=== PATIENT | female | born 1945 ===

== ENCOUNTER 2020-06-09 16:34 | Emergency (ER) | payer MEDICARE ==
[~2020-06-09 16:34] MED LIST: Iopamidol-370 76% 500 ML 1 ML ONE
--- NOTE | 2020-06-09 17:11 | RAD ---
Chest AP view INDICATION: Chest pain COMPARISON: None FINDINGS: Lungs: The lungs are clear Cardiac silhouette: The cardiomediastinal silhouette appears within normal limits. Pulmonary vasculature: Normal Pleural spaces: No pleural effusion or pneumothorax is demonstrated. Upper abdomen: No abnormality seen. Osseous structures: No acute osseous abnormality. Additional findings: Surgical clips overlie the lower chest wall. IMPRESSION: No acute cardiopulmonary abnormality.
[2020-06-09 17:16] LABS: #Basophils 0.1 thou/uL (0.0-0.2); #Eosinphils 0.3 thou/uL (0.0-0.7); #Lymphocytes 2.1 thou/uL (1.20-3.40); #Monocytes 0.7 thou/uL (0.11-0.59); #Neutrophils 4.6 thou/uL (1.40-6.50); %Basophils 0.8 % (0.0-1.0); %Eosinophils 3.9 % (0.0-10.0); %Monocytes 9.2 % (0.0-10.0); %Neutrophils 59.1 % (42.0-75.0); Hemoglobin 12.1 g/dL (12.0-16.0); Mean Corpuscular HGB CONC 33.4 g/dL (32.0-36.0); Mean Corpuscular Hemoglobin 30.1 pg (27.0-31.0); Mean Corpuscular Volume 90.2 fL (78.0-98.0); Mean Platelet Volume 7.6 fL (7.4-10.4); Platelet Count 221 thou/uL (130-400); RBC Distribution Width 12.6 % (11.5-14.5); White Blood Cell (WBC) Count 7.8 thou/uL (4.8-10.8)
[2020-06-09 17:23] LABS: INR-International Normal Ratio 1.1; Prothrombin Time 14.6 sec (12.0-14.7)
[2020-06-09 17:24] LABS: PTT 31.2 sec (22.9-36.1)
[2020-06-09 17:57] LABS: ALT (SGPT) 16 U/L (8-55); AST (SGOT) 19 U/L (5-34); Albumin 3.7 g/dL (3.4-4.8); Alkaline Phosphatase 56 U/L (40-110); Anion Gap 13 mmol/L (10-20); BUN (Urea Nitrogen) 21 mg/dL (9.8-20.1); Bilirubin, Total 0.4 mg/dL (0.2-1.2); Calc. Creatinine Clearance 0 mL/min (70-130); Calcium 8.7 mg/dL (7.8-10.44); Carbon Dioxide 27 mmol/L (23-31); Chloride 101 mmol/L (98-107); Globulin 3.1 g/dL (2.4-3.5); Glucose 186 mg/dL (83-110); Potassium 4.4 mmol/L (3.5-5.1); Protein, Total 6.8 g/dL (6.0-8.3); Sodium 137 mmol/L (136-145)
[2020-06-09] MEDS ORDERED: Ondansetron PF 4 MG/2 ML Vial ONE (18:16)
--- NOTE | 2020-06-09 18:30 | CT ---
Exam: CT angiogram of the chest HISTORY: High d-dimer. Dyspnea. COMPARISON: None TECHNIQUE: CT angiogram of the chest is performed in the axial plane. Three-dimensional reformatted i mages are submitted for interpretation FINDINGS: Mediastinum: No mass, lymphadenopathy or hematoma. HEART: Normal size. No significant pericardial fluid. There is mitral valve calcification. Aorta: No aneurysm or dissection Upper solid abdominal viscera: No acute abnormality. Exophytic hypodensity emanates from the left kid eileen with attenuation coefficient of 35 Hounsfield units. Characterization is incomplete of this 2.3 x 1.8 cm mass. Gallbladder is surgically absent. Trachea and central bronchi: Patent Pleural spaces: No effusion Lung parenchyma: No groundglass opacities involving the right lower lobe. Linear densities in the lef t and right lower lobe, lingula and medial upper lobes likely represent areas of scar and atelectasis. Pneumothorax: None Osseous structures: No lytic or blastic lesions Pulmonary arteries: Adequate contrast opacification pulmonary arterial system to the level of segment al arteries. No filling defect to suggest pulmonary embolism IMPRESSION: 1. No evidence of pulmonary arterial embolism to the level of segmental arteries 2. Patchy areas of scarring involving the lung parenchyma as described above. No evidence of consolid ation. 3. Incompletely evaluated hypodensity emanating from the left renal cortex. Nonemergent renal ultraso und.
--- NOTE | 2020-06-14 16:51 | EKG ---
Test Reason : Blood Pressure : / mmHG Vent. Rate : 089 BPM Atrial Rate : 089 BPM P-R Int : 170 ms QRS Dur : 106 ms QT Int : 374 ms P-R-T Axes : 043 013 018 degrees QTc Int : 455 ms Normal sinus rhythm Incomplete right bundle branch block Possible Inferior infarct , age undetermined Abnormal ECG Confirmed by ABHILASH SIM ([id number]), film editor PENELOPE DOW ([id number]) on 06/14/2020 4:51:12 PM Referred By: Confirmed By:ABHILASH Cornejo
== END 2020-06-09 19:01 | disposition home or self-care (01) ==
LOC: ERS 16:34
DX: R06.00 Dyspnea, unspecified (principal); E11.9 Type 2 diabetes mellitus without complications; E78.00 Pure hypercholesterolemia, unspecified; I48.91 Unspecified atrial fibrillation; F41.9 Anxiety disorder, unspecified; Z79.899 Other long term (current) drug therapy; Z79.82 Long term (current) use of aspirin
CPT/HCPCS: 71045; 71275; 80053; 83880; 84484; 85025; 85610; 85730; 93005; 96374; J2405; Q9967